=== PATIENT | female | born 1975 | race Two or more races ===

== ENCOUNTER 2018-12-02 12:29 | Emergency (ER) | payer SELFPAY ==
[~2018-12-02] VITALS: Ht 152.4 cm; Wt 61.2 kg
[2018-12-02 12:48] VITALS: BP 139/87
== END 2018-12-02 14:01 | disposition home or self-care (01) ==
LOC: EDSEX 12:29 → ER 12:29
DX: T23.101A Burn of first degree of right hand, unspecified site, initial encounter (principal); S40.021A Contusion of right upper arm, initial encounter; R07.89 Other chest pain; I10 Essential (primary) hypertension; F10.10 Alcohol abuse, uncomplicated; Y90.9 Presence of alcohol in blood, level not specified; X08.8XXA Exposure to other specified smoke, fire and flames, initial encounter; Y93.89 Activity, other specified; Y92.89 Other specified places as the place of occurrence of the external cause; Y99.0 Civilian activity done for income or pay
CPT/HCPCS: 73090-TC